=== PATIENT | female | born 1995 | race African-American/Black ===

== ENCOUNTER 2017-04-15 23:05 | Emergency (ER) | payer MEDICAID, SELFPAY ==
[2017-04-16] MEDS ORDERED: Dexamethasone 4 mg/ml Vial ONE (01:05)
== END 2017-04-16 01:31 | disposition home or self-care (01) ==
LOC: ERS 23:05
DX: B34.9 Viral infection, unspecified (principal); F41.9 Anxiety disorder, unspecified; F32.9 Major depressive disorder, single episode, unspecified
CPT/HCPCS: 87081; 87430; 99283; J1100

== ENCOUNTER 2017-06-13 21:46 | Emergency (ER) | payer MEDICAID, SELFPAY ==
[2017-06-13] MEDS ORDERED: Metoclopramide HCl 10 MG/2 ML VIAL ONE (22:32)
[2017-06-13] MEDS ORDERED: diphenhydrAMINE 50 MG/ML VIAL ONE (22:32)
[2017-06-13 23:08] LABS: Pregnancy Test - Urine (BHCG) Negative (Negative); Pregu Control Background? CLEAR/WHITE (CLR/WHITE); Pregu Control Bar Appear? YES (CONTROL BAR); Specific Gravity 1.016 (1.002-1.036)
[2017-06-13] MEDS ORDERED: Magnesium Sulfate 2 GM/100 ML BAG ONE (23:20)
[2017-06-13] MEDS ORDERED: Ketorolac Tromethamine 30 MG/ML VIAL ONE (23:20)
== END 2017-06-14 00:20 | disposition home or self-care (01) ==
LOC: ERS 21:46
DX: R51 Headache (principal); F41.9 Anxiety disorder, unspecified; F32.9 Major depressive disorder, single episode, unspecified; Z79.899 Other long term (current) drug therapy
CPT/HCPCS: 81025; 96365; 96367; 96375; J1200; J1885; J2765; J3475

== ENCOUNTER 2017-07-02 13:18 | Emergency (ER) | payer SELFPAY ==
[2017-07-02] MEDS ORDERED: Ketorolac Tromethamine 30 MG/ML VIAL ONE (13:31)
[2017-07-02] MEDS ORDERED: Ondansetron HCl/PF 4 MG/2 ML Vial ONE (13:32)
[2017-07-02 14:04] LABS: Bilirubin Negative (Negative); Blood, Urine Large (Negative); Clarity TURBID (Clear); Glucose, Urine (Dipstick) Negative (Negative); Specific Gravity, Urine 1.025 (1.002-1.036); pH, Urine 7.5 (5.0-9.0)
[2017-07-02 14:05] LABS: Pregnancy Test - Urine (BHCG) Negative (Negative); Pregu Control Background? CLEAR/WHITE (CLR/WHITE); Pregu Control Bar Appear? YES (CONTROL BAR); Specific Gravity 1.025 (1.002-1.036)
[2017-07-02 14:06] LABS: Bacteria/HPF None Seen HPF (None Seen); Hyaline Casts/LPF 4-6 HYALINE CAST LPF (0-3 Hyaline); Pathc Cast-AUWi Flag 2.08 (0-2.49); RBC/HPF GREATER THAN 50-TNTC HPF (0-3)
[2017-07-02 14:13] LABS: Nitrite Negative (Negative)
[2017-07-02 14:14] LABS: Protein, Urine (Dipstick) 30 mg/dL (Neg-Trace)
[2017-07-02 14:21] LABS: Leukocyte Trace (Negative)
== END 2017-07-02 14:40 | disposition home or self-care (01) ==
LOC: ERS 13:18
DX: N39.0 Urinary tract infection, site not specified (principal); F41.9 Anxiety disorder, unspecified; D64.9 Anemia, unspecified; F32.9 Major depressive disorder, single episode, unspecified
CPT/HCPCS: 81003; 81015; 81025; 96374; 96375; J1885; J2405

== ENCOUNTER 2017-07-06 20:33 | Emergency (ER) | payer SELFPAY ==
[2017-07-06] MEDS ORDERED: Ketorolac Tromethamine 30 MG/ML VIAL ONE (21:20)
[2017-07-06] MEDS ORDERED: Ondansetron PF 4 MG/2 ML Vial ONE (21:20)
[2017-07-06 21:26] LABS: #Basophils 0.1 thou/uL (0.0-0.2); #Eosinphils 0.1 thou/uL (0.0-0.7); #Lymphocytes 1.5 thou/uL (1.20-3.40); #Monocytes 0.4 thou/uL (0.11-0.59); #Neutrophils 4.3 thou/uL (1.40-6.50); %Basophils 0.9 % (0.0-1.0); %Eosinophils 2.2 % (0.0-10.0); %Lymphocytes 22.7 % (28.0-48.0); %Monocytes 6.7 % (0.0-4.0); %Neutrophils 67.5 % (31.0-61.0); Hemoglobin 10.7 g/dL (12.0-16.0); Mean Corpuscular HGB CONC 31.8 g/dL (32.0-36.0); Mean Corpuscular Hemoglobin 24.2 pg (25.0-35.0); Mean Corpuscular Volume 76.1 fl (77.0-87.0); Mean Platelet Volume 6.9 fL (7.4-10.4); Platelet Count 384 thou/uL (130-400); RBC Distribution Width 14.2 % (11.5-14.5); Red Blood Cell (RBC) Count 4.42 mill/uL (4.00-5.20); White Blood Cell (WBC) Count 6.4 thou/uL (4.8-10.8)
[2017-07-06 21:28] LABS: Bilirubin Negative (Negative); Blood, Urine Large (Negative); Clarity CLEAR (Clear); Glucose, Urine (Dipstick) Negative (Negative); Leukocyte Negative (Negative); Nitrite Negative (Negative); Protein, Urine (Dipstick) 30 mg/dL (Neg-Trace); Specific Gravity, Urine 1.036 (1.002-1.036); Urobilinogen 0.2 mg/dL (0.2-1.0)
[2017-07-06 21:30] LABS: Bacteria/HPF Rare-Few HPF (None Seen); Hyaline Casts/LPF 7-10 HYALINE CAST LPF (0-3 Hyaline); Pathc Cast-AUWi Flag 0.94 (0-2.49); RBC/HPF GREATER THAN 50-TNTC HPF (0-3)
[2017-07-06 21:36] LABS: BHCG - Serum Negative (NEGATIVE); Pregs Control Background? CLEAR/WHITE (CLR/WHITE); Pregs Control Bar Appear? YES (CONTROL BAR)
[2017-07-06 21:48] LABS: ALT (SGPT) 13 U/L (8-55); AST (SGOT) 16 U/L (5-34); Albumin 4.1 g/dL (3.5-5.0); Alkaline Phosphatase 54 U/L (40-150); Anion Gap 12 mmol/L (10-20); BUN (Urea Nitrogen) 15 mg/dL (7.0-18.7); Bilirubin, Total 0.6 mg/dL (0.2-1.2); Calc. Creatinine Clearance 0 mL/min (70-130); Calcium 9.3 mg/dL (7.8-10.44); Carbon Dioxide 24 mmol/L (22-29); Chloride 105 mmol/L (98-107); Estimated GFR-MDRD Greater than 90; Globulin 3.2 g/dL (2.4-3.5); Glucose 80 mg/dL (70-105); Potassium 3.3 mmol/L (3.5-5.1); Protein, Total 7.3 g/dL (6.0-8.3); Sodium 138 mmol/L (136-145)
== END 2017-07-06 23:20 | disposition home or self-care (01) ==
LOC: ERS 20:33
DX: N39.0 Urinary tract infection, site not specified (principal); N94.89 Other specified conditions associated with female genital organs and menstrual cycle; D64.9 Anemia, unspecified; F41.9 Anxiety disorder, unspecified; F32.9 Major depressive disorder, single episode, unspecified; G43.909 Migraine, unspecified, not intractable, without status migrainosus
CPT/HCPCS: 80053; 81003; 81015; 84703; 85025; 96361; 96374; 96375; J1885; J2405

== ENCOUNTER 2017-08-09 02:02 | Emergency (ER) | payer MEDICAID, SELFPAY ==
[2017-08-09] MEDS ORDERED: Ondansetron HCl/PF 4 MG/2 ML Vial ONE (02:08)
[2017-08-09] MEDS ORDERED: Acetaminophen 500 MG TAB ONE (02:31)
[2017-08-09 02:34] LABS: #Basophils 0.1 thou/uL (0.0-0.2); #Eosinphils 0.4 thou/uL (0.0-0.7); #Lymphocytes 2.1 thou/uL (1.20-3.40); #Monocytes 0.6 thou/uL (0.11-0.59); #Neutrophils 3.3 thou/uL (1.40-6.50); %Basophils 1.2 % (0.0-1.0); %Eosinophils 6.7 % (0.0-10.0); %Lymphocytes 31.6 % (28.0-48.0); %Monocytes 9.8 % (0.0-4.0); %Neutrophils 50.7 % (31.0-61.0); Hemoglobin 10.3 g/dL (12.0-16.0); Mean Corpuscular Volume 78.3 fl (77.0-87.0); Mean Platelet Volume 6.2 fL (7.4-10.4); Platelet Count 329 thou/uL (130-400); RBC Distribution Width 15.4 % (11.5-14.5); Red Blood Cell (RBC) Count 4.11 mill/uL (4.00-5.20); White Blood Cell (WBC) Count 6.5 thou/uL (4.8-10.8)
[2017-08-09 02:39] LABS: BHCG - Serum Negative (NEGATIVE); Pregs Control Background? CLEAR/WHITE (CLR/WHITE); Pregs Control Bar Appear? YES (CONTROL BAR)
[2017-08-09 02:48] LABS: ALT (SGPT) 7 U/L (8-55); AST (SGOT) 12 U/L (5-34); Albumin 3.7 g/dL (3.5-5.0); Alkaline Phosphatase 41 U/L (40-150); Anion Gap 8 mmol/L (10-20); BUN (Urea Nitrogen) 10 mg/dL (7.0-18.7); Bilirubin, Total 0.3 mg/dL (0.2-1.2); Calc. Creatinine Clearance 0 mL/min (70-130); Calcium 8.8 mg/dL (7.8-10.44); Carbon Dioxide 26 mmol/L (22-29); Chloride 108 mmol/L (98-107); Estimated GFR-MDRD Greater than 90; Globulin 2.6 g/dL (2.4-3.5); Glucose 99 mg/dL (70-105); Potassium 3.2 mmol/L (3.5-5.1); Protein, Total 6.3 g/dL (6.0-8.3); Sodium 139 mmol/L (136-145)
[2017-08-09] MEDS ORDERED: Ketorolac Tromethamine 30 MG/ML VIAL ONE (03:44)
--- NOTE | 2017-08-09 08:32 | ULT ---
PRELIMINARY REPORT/[facility]/EMERGENCY AFTER HOURS PROCEDURE: EXAM: US Pelvis Complete, Transabdominal CLINICAL HISTORY: 21 years old, female; Pain and signs and symptoms; Menstruation abnormalities; Excessive menstruation ; With irregular cycle; Pelvic pain; Patient HX: Pelvic pain with vaginal bleeding x 1 month, dyspare unia; Additional info: Patient start control pill 07/19/17. TECHNIQUE: Real-time transabdominal pelvic ultrasound (complete) with image documentation. COMPARISON: No relevant prior studies available. FINDINGS: Uterus/cervix: Unremarkable. Thickened, heterogeneous endometrial stripe measuring up to 1.9 cm with internal Doppler color flow. Right ovary: Unremarkable. Doppler flow demonstrated. Left ovary: Unremarkable. Doppler flow demonstrated. Free fluid: Small amount of free fluid in the cul-de-sac. IMPRESSION: Thickened endometrial stripe, could be related to hyperplasia or polyps. Thank you for allowing us to participate in the care of your patient. Dictated and Authenticated by: Paddy Estes MD 08/09/2017 3:58 AM Central Time ([place] & [place]) FINAL REPORT PELVIC ULTRASOND: Date: 08/09/17 HISTORY: Pelvic pain. Vaginal bleeding. Negative test. FINDINGS: Real-time images of the pelvis were obtained transabdominally, as well as with an endovaginal probe. The uterus measures 5.1 x 5.7 x 8.7 cm. The endometrium is thickened and heterogeneous. It measures 1 .9 cm. Right and left adnexa are normal in size and appearance. DOPPLER EVALUATION WITH SPECTRAL ANALYSIS: Normal flow shown to the adnexa. Trace free fluid is noted. IMPRESSION: Thickened, heterogeneous endometrium, more heterogeneous in appearance than would be typically seen r elated to menstrual cycle. It could represent blood products. POS: [facility]
[2017-08-10 21:57] LABS: Chlamydia by PCR Not Detected (NotDetected); GC by PCR Not Detected (NotDetected)
== END 2017-08-09 04:24 | disposition home or self-care (01) ==
LOC: ERS 02:02
DX: N94.6 Dysmenorrhea, unspecified (principal); D64.9 Anemia, unspecified; G43.909 Migraine, unspecified, not intractable, without status migrainosus; F41.9 Anxiety disorder, unspecified; F32.9 Major depressive disorder, single episode, unspecified
CPT/HCPCS: 36415; 76856; 80053; 84702; 84703; 85025; 87480; 87491; 87510; 87591; 87660; 96361; 96374; 96375; J1885; J2405

== ENCOUNTER 2017-11-02 20:54 | Emergency (ER) | payer SELFPAY ==
[2017-11-02 21:23] LABS: #Eosinphils 0.3 thou/uL (0.0-0.7); #Lymphocytes 2.2 thou/uL (1.20-3.40); #Monocytes 0.5 thou/uL (0.11-0.59); #Neutrophils 2.5 thou/uL (1.40-6.50); %Basophils 0.9 % (0.0-1.0); %Eosinophils 5.7 % (0.0-10.0); %Lymphocytes 39.2 % (21.0-51.0); %Monocytes 9.5 % (0.0-10.0); %Neutrophils 44.7 % (42.0-75.0); Hemoglobin 9.3 g/dL (12.0-16.0); Mean Corpuscular HGB CONC 32.1 g/dL (32.0-36.0); Mean Corpuscular Hemoglobin 23.6 pg (27.0-31.0); Mean Corpuscular Volume 73.5 fl (81.0-99.0); Mean Platelet Volume 6.8 fL (7.4-10.4); Platelet Count 334 thou/uL (130-400); RBC Distribution Width 14.1 % (11.5-14.5); Red Blood Cell (RBC) Count 3.93 mill/uL (4.20-5.40); White Blood Cell (WBC) Count 5.6 thou/uL (4.8-10.8)
[2017-11-02 21:41] LABS: Hypochromia SLIGHT = 6-15 cells (100X) (0-5/hpf); MDiff Complete? YES; Microcytosis SLIGHT = 6-15 cells (100X) (0-5/hpf); Ovalocytes SLIGHT = 2-5 cells (100X) (0-1/hpf); PLT Morphology Comment Appears Adequate; Polychromasia SLIGHT = 2-3 cells (100X) (0-2/hpf)
[2017-11-02 21:41] LABS: Bilirubin Negative (Negative); Blood, Urine Negative (Negative); Clarity CLEAR (Clear); Glucose, Urine (Dipstick) Negative (Negative); Leukocyte Negative (Negative); Nitrite Negative (Negative); Protein, Urine (Dipstick) Negative (Neg-Trace); pH, Urine 6.5 (5.0-9.0)
[2017-11-02 21:42] LABS: Pregnancy Test - Urine (BHCG) Negative (Negative); Pregu Control Background? CLEAR/WHITE (CLR/WHITE); Pregu Control Bar Appear? YES (CONTROL BAR)
[2017-11-02 21:42] LABS: Anion Gap 10 mmol/L (10-20); BUN (Urea Nitrogen) 9 mg/dL (7.0-18.7); Calc. Creatinine Clearance 0 mL/min (70-130); Calcium 9.3 mg/dL (7.8-10.44); Carbon Dioxide 26 mmol/L (22-29); Chloride 104 mmol/L (98-107); Estimated GFR-MDRD Greater than 90; Glucose 100 mg/dL (70-105); Potassium 3.3 mmol/L (3.5-5.1); Sodium 137 mmol/L (136-145)
== END 2017-11-02 22:12 | disposition home or self-care (01) ==
LOC: ERS 20:54
DX: M79.1 Myalgia (principal); F41.9 Anxiety disorder, unspecified; F32.9 Major depressive disorder, single episode, unspecified; G43.909 Migraine, unspecified, not intractable, without status migrainosus; D64.9 Anemia, unspecified; Z79.899 Other long term (current) drug therapy
CPT/HCPCS: 36415; 80048; 81003; 81025; 85025; 99283

== ENCOUNTER 2017-11-21 22:08 | Emergency (ER) | payer SELFPAY ==
[2017-11-21 22:31] LABS: Bilirubin Small (Negative); Blood, Urine Large (Negative); Clarity TURBID (Clear); Glucose, Urine (Dipstick) Negative (Negative); Leukocyte Moderate (Negative); Nitrite Positive (Negative); Pregnancy Test - Urine (BHCG) Negative (Negative); Protein, Urine (Dipstick) 300 mg/dL (Neg-Trace); Specific Gravity, Urine 1.035 (1.002-1.036); pH, Urine 6.5 (5.0-9.0)
[2017-11-21 22:32] LABS: Bacteria/HPF None Seen HPF (None Seen); Pregu Control Background? CLEAR/WHITE (CLR/WHITE); Pregu Control Bar Appear? YES (CONTROL BAR); RBC/HPF GREATER THAN 50-TNTC HPF (0-3); Specific Gravity 1.034 (1.002-1.036)
[2017-11-21 22:33] LABS: Pathc Cast-AUWi Flag 6.68 (0-2.49)
[2017-11-21 22:38] LABS: Hyaline Casts/LPF 0-3 HYALINE CAST LPF (0-3 Hyaline)
== END 2017-11-21 23:07 | disposition home or self-care (01) ==
LOC: ERS 22:08
DX: N30.00 Acute cystitis without hematuria (principal); D64.9 Anemia, unspecified; G43.909 Migraine, unspecified, not intractable, without status migrainosus; F41.9 Anxiety disorder, unspecified; F32.9 Major depressive disorder, single episode, unspecified; Z79.899 Other long term (current) drug therapy
CPT/HCPCS: 81003; 81015; 81025; 87086; 99283

== ENCOUNTER 2018-03-14 10:38 | Outpatient (CLI) | payer OTHER ==
[2018-03-14 12:40] LABS: Hemoglobin 10.1 g/dL (12.0-16.0); Mean Corpuscular Hemoglobin 21.8 pg (27.0-31.0); Mean Corpuscular Volume 72.6 fL (78.0-98.0); Mean Platelet Volume 8.2 fL (7.4-10.4); Platelet Count 465 thou/uL (130-400); RBC Distribution Width 15.7 % (11.5-14.5); Red Blood Cell (RBC) Count 4.62 mill/uL (4.20-5.40); White Blood Cell (WBC) Count 6.2 thou/uL (4.8-10.8)
[2018-03-14 12:46] LABS: BHCG - Serum Negative (NEGATIVE); Pregs Control Background? CLEAR/WHITE (CLR/WHITE); Pregs Control Bar Appear? YES (CONTROL BAR)
== END 2018-03-14 10:39 | disposition home or self-care (01) ==
LOC: LABBT 10:38
PROVIDERS: ATTEND Obstetrics & Gynecology
DX: Z01.812 Encounter for preprocedural laboratory examination (principal); R10.2 Pelvic and perineal pain; N84.0 Polyp of corpus uteri
CPT/HCPCS: 84703; 85027; 86850; 86900; 86901

== ENCOUNTER 2018-03-19 07:55 | Day surgery (SDC) | payer OTHER ==
[2018-03-14 11:07] VITALS: BMI 28.3
--- NOTE | 2018-03-18 21:13 | HP ---
DATE OF ADMISSION: 03/19/2018 REASON FOR ADMISSION: Dysfunctional uterine bleeding with thickened endometrium consistent with endo metrial polyp. SCHEDULED PROCEDURE: Hysteroscopy, D&C endocavitary polyp resection. HISTORY OF PRESENT ILLNESS: Ms. Hidalgo is a 22-year-old with a long history of dysfunctional uterine bleeding. Ultrasound has revealed a very thickened endometrium and is very suggestive of an endocavitary polyp. Biopsy has been scant tissue with no evidence of malignancy. Polyp appears quit e vascular on Doppler ultrasound. The patient has a history of chronic pelvic pain somewhat suggesti ve of endometriosis on a cyclic basis. 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 Denies STD history. Pregnancies: 1, AB: 1. Deliveries: None. PAST MEDICAL HISTORY: None. PAST SURGICAL HISTORY: None. ALLERGIES: Denies. MEDICATIONS: Provera, . SOCIAL HISTORY: Denies tobacco, alcohol, or drug use. FAMILY HISTORY: Noncontributory. REVIEW OF SYSTEMS: Noncontributory. PHYSICAL EXAMINATION: GENERAL: White female in no acute distress. HEENT: Within normal limits. LUNGS: Clear to auscultation bilaterally. HEART: Regular rhythm. BREASTS: No masses bilaterally. ABDOMEN: Soft, nontender, no rebound or guarding. PELVIC: Vulva without lesions. Vagina without discharge. Cervix nulliparous. Uterus anteverted, 8 week size. Adnexa no masses bilaterally. EXTREMITIES: Without clubbing, cyanosis or edema. IMAGING: Abnormal ultrasound at the office is noted. IMPRESSION: Persistent dysfunctional uterine bleeding with vascular appearing mass in the uterine ca vity consistent with polyp. PLAN: Hysteroscopy, D&C and polyp resection with Truclear. The patient understands risks and benef its of the procedure including bleeding, perforation, inability to complete procedure. We will admin ister appropriate antibiotic and DVT prophylaxis. We will proceed with hysteroscopy, D&C, endometria l resection with Truclear and diagnostic laparoscopy.
[2018-03-19] MEDS ORDERED: CeleCOXIB 100 MG CAP ONE ×2 (08:26→08:27)
[2018-03-19] MEDS ORDERED: Famotidine/PF 20 mg/2ml Vial ONE ×2 (08:27)
[2018-03-19] MEDS ORDERED: Clindamycin/D5W 900 mg/50 ml Premix Bag ONE (10:01)
[2018-03-19] MEDS ORDERED: Fentanyl 250 MCG/5 ML VIAL ONE (10:29)
[2018-03-19] MEDS ORDERED: Bupivacaine HCl 0.5%/Epinephrine 1:200,000/PF 30 ml Vial ONE (10:34)
[2018-03-19] MEDS ORDERED: Lidocaine 1% w/Epinephrine 1:100K 30 ML VIAL ONE (11:19)
[2018-03-19] MEDS ORDERED: diphenhydrAMINE 50 MG/ML VIAL ONE (13:50)
[2018-03-19] MEDS ORDERED: Lidocaine 1% PF 5 ML VIAL ONE (17:52)
[2018-03-19] MEDS ORDERED: Ondansetron PF 4 MG/2 ML Vial ONE (17:52)
[2018-03-19] MEDS ORDERED: PROPOFOL 200 MG/20 ML VIAL ONE (17:52)
[2018-03-19] MEDS ORDERED: Dexamethasone 20 MG/5 ML VIAL ONE (17:52)
--- NOTE | 2018-03-20 00:43 | OP ---
DATE OF PROCEDURE: 03/19/2018 PREOPERATIVE DIAGNOSES: Chronic pelvic pain with dysfunctional uterine bleeding, ultrasound its appe arance consistent with endocavitary polyps. POSTOPERATIVE DIAGNOSES: Small amount of uterosacral ligament endometriosis with 1-2 cm endometrioti c nodule involving the rectum and right uterosacral and multiple endocavitary polyps with benign appe arance. PROCEDURE: Diagnostic laparoscopy with hysteroscopic resection of endocavitary polyps. SURGEON: Cesario Renee M.D. ANESTHESIA: General endotracheal. Beny Frausto M.D. MEDICATIONS: Clindamycin 900 preoperatively. DRAINS: Singh to gravity, clear urine. COMPLICATIONS: None. OPERATIVE FINDINGS: 1. Fluid use for approximately 750 mL intraoperatively with polyp resection with fluid deficit of 13 0 mL at the end of the procedure with no evidence of perforation. 2. Uterine cavity with multiple uterine polyps resected. 3. Small powder burn areas of endometriosis noted on right and left uterosacral ligament, none in th e ovarian fossa, none in the anterior cul-de-sac. 4. Approximately 1 to 1.5 cm endometriotic nodule with significant scarring involving the right uter osacral ligament, rectovaginal space, and anterior rectum. DISPOSITION: To the recovery room in good condition. DESCRIPTION OF OPERATIVE PROCEDURE: After obtaining proper consent, the patient was taken to the ope rating where general endotracheal anesthesia without difficulty. The patient was prepped and draped in dorsal lithotomy position in John stirrups. Bladder was drained with a Singh catheter and a Hulk a manipulator placed inside the cervix. Quality Improvement Consultant changed his gloves and turned his attention to the abdominal portion of procedure. A 5 mL of Marcaine injected at the base of umbilicus and an 8 mm tro car introduced after insufflating the abdomen with a Veress needle to a max pressure of 15. The nehemiah ent was placed in steep Trendelenburg position and a 5 mm trocar placed left lateral, lateral to the epigastric vessels under direct visualization. Pelvic organs were mobilized and findings as noted in the operative findings were noted. In general, the ileocecal valve area appeared normal with no inf lammation of the appendix that was noted to be somewhat retrocecal, liver edge, gallbladder appeared normal, and the uterus and adnexa appeared normal. Upon inspection of the posterior cul-de-sac, find ings as noted in the operative findings were noted. Dr. Chito Goodman was consulted intraoperatively . He agreed that attempts at excising the nodule involving the rectum, rectovaginal septum, and righ t uterosacral would likely result in injury to the bowel at that level. The decision was made becbethany e of this not to proceed with excision of that or other endometriosis in the area, which was of a jaclyn y minimal size and distribution beyond this nodule. Instead, I anticipate seeing the patient back fo r followup and proceeding with either GnRH agonist or other appropriate treatment for endometriosis m edically with consideration for possible staged procedure with bowel prep with Dr. Goodman at a futur e date. Since we were going to excise this mass, decision was made to go ahead and proceed with the therapeutic hysteroscopy at this time. The abdomen was desufflated with carbon dioxide. Trocars wer e removed x2. Skin was closed with 4-0 Monocryl and Dermabond. returned to the vaginal approa . The legs were rotated up and the Hulka manipulator removed. A side-hand speculum placed in vagi na and cervix identified. Uterus sounded to 8 cm. It was serially dilated up to appropriate level f or the TruClear hysteroscope. TruClear hysteroscopy was carried out using normal saline as at max pressure of 80 mL. TruClear was introduced into the uterus and the fundus. Identification of th e uterine cavity was carried out with identification of the tubal ostia bilaterally and no evidence o f perforation. Multiple polyps were noted. Using the TruClear incision device, the polyps were rese cted in a stepwise manner maintaining clear visualization of the resection device throughout avoid ri sk of uterine perforation. Polyps were resected down to the level of flush with the uterine wall, bu t no deeper in order to avoid risk of Asherman syndrome due to over resection of endometrium. Once t his was carried out, fluid deficit was noted to be 130 mL. No evidence of perforation was noted. Th e hysteroscope was removed. Prior to hysteroscopy, a paracervical block of 20 mL of 1% lidocaine wit h epinephrine was injected to decrease uterine blood flow, therefore decreasing the bleeding with ashley yp resection as well as absorption of distention media. After the hysteroscope was removed, the nathan culum was removed. No bleeding was noted from the anterior lip of the cervix. Side-hand speculum re moved. Singh removed. The patient awakened, extubated and taken to recovery room in good condition. She will be [facility] at [facility] in 4-6 weeks for postoperative followup.
== END 2018-03-19 16:15 | disposition home or self-care (01) ==
LOC: SDC 07:55
PROVIDERS: ATTEND Obstetrics & Gynecology
PROC: 0WJJ4ZZ Inspection of Pelvic Cavity, Percutaneous Endoscopic Approach (ICD-10-PCS; principal; 2018-03-19)
PROC: 0UB98ZX Excision of Uterus, Via Natural or Artificial Opening Endoscopic, Diagnostic (ICD-10-PCS; principal; 2018-03-19)
DX: N84.0 Polyp of corpus uteri (principal); N80.8 Other endometriosis; Z79.899 Other long term (current) drug therapy; Z88.0 Allergy status to penicillin
CPT/HCPCS: 88305; J0670; J1100; J1200; J2001; J2405; J2704; J3010; J3490; S0028

== ENCOUNTER 2018-03-27 13:17 | Emergency (ER) | payer SELFPAY ==
[2018-03-27 13:52] LABS: #Basophils 0.1 thou/uL (0.0-0.2); #Eosinphils 0.4 thou/uL (0.0-0.7); #Monocytes 0.4 thou/uL (0.11-0.59); #Neutrophils 3.4 thou/uL (1.40-6.50); %Basophils 1.7 % (0.0-1.0); %Eosinophils 6.5 % (0.0-10.0); %Lymphocytes 31.7 % (21.0-51.0); %Monocytes 6.9 % (0.0-10.0); %Neutrophils 53.2 % (42.0-75.0); Hemoglobin 9.3 g/dL (12.0-16.0); Mean Corpuscular HGB CONC 31.1 g/dL (32.0-36.0); Mean Corpuscular Hemoglobin 22.3 pg (27.0-31.0); Mean Corpuscular Volume 71.9 fL (78.0-98.0); Mean Platelet Volume 7.9 fL (7.4-10.4); Platelet Count 326 thou/uL (130-400); RBC Distribution Width 15.2 % (11.5-14.5); Red Blood Cell (RBC) Count 4.15 mill/uL (4.20-5.40); White Blood Cell (WBC) Count 6.4 thou/uL (4.8-10.8)
[2018-03-27 14:05] LABS: BHCG - Serum Negative (NEGATIVE); Pregs Control Background? CLEAR/WHITE (CLR/WHITE); Pregs Control Bar Appear? YES (CONTROL BAR)
[2018-03-27 14:15] LABS: ALT (SGPT) 12 U/L (8-55); AST (SGOT) 16 U/L (5-34); Albumin 3.8 g/dL (3.5-5.0); Alkaline Phosphatase 49 U/L (40-150); Anion Gap 10 mmol/L (10-20); BUN (Urea Nitrogen) 9 mg/dL (7.0-18.7); Bilirubin, Total 0.3 mg/dL (0.2-1.2); Calc. Creatinine Clearance 0 mL/min (70-130); Calcium 8.9 mg/dL (7.8-10.44); Carbon Dioxide 25 mmol/L (22-29); Chloride 106 mmol/L (98-107); Estimated GFR-MDRD Greater than 90; Globulin 2.8 g/dL (2.4-3.5); Glucose 107 mg/dL (70-105); Potassium 3.5 mmol/L (3.5-5.1); Protein, Total 6.6 g/dL (6.0-8.3); Sodium 137 mmol/L (136-145)
--- NOTE | 2018-03-27 14:53 | CT ---
CT PULMONARY ANGIOGRAM WITH IV CONTRAST AND 3D POSTPROCESSING: Date: 03/27/18 HISTORY: 22-year-old female with dyspnea, elevated D-Dimer, syncope. FINDINGS: There is good opacification of the pulmonary arterial vasculature without filling defects to suggest pulmonary embolism. The thoracic aorta is well opacified without aneurysm or dissection. No pleural or pericardial effusions are seen. No pneumothoraces, focal areas of consolidation, pulmon ishaan nodules, or lung masses are seen. No acute osseous abnormalities are seen. IMPRESSION: No CT evidence of pulmonary embolism. POS: [facility]
[2018-03-27] MEDS ORDERED: Metoclopramide HCl 10 MG TAB PO SCH (15:45)
[2018-03-27] MEDS ORDERED: diphenhydrAMINE 25 MG CAP ONE (16:23)
[2018-03-27] MEDS ORDERED: Iopamidol 370 76% 100 ML VIAL ONE (16:30)
== END 2018-03-27 16:40 | disposition home or self-care (01) ==
LOC: ERS 13:17
DX: R55 Syncope and collapse (principal); F41.9 Anxiety disorder, unspecified; F32.9 Major depressive disorder, single episode, unspecified; D64.9 Anemia, unspecified; G43.909 Migraine, unspecified, not intractable, without status migrainosus; Z79.899 Other long term (current) drug therapy
CPT/HCPCS: 36415; 71275; 80053; 84703; 85025; 85379; 93005; 96360

== ENCOUNTER 2018-10-06 12:52 | Emergency (ER) | payer SELFPAY ==
[2018-10-06] MEDS ORDERED: Ondansetron PF 4 MG/2 ML Vial ONE (13:18)
[2018-10-06 13:19] LABS: #Basophils 0.1 thou/uL (0.0-0.2); #Eosinphils 0.2 thou/uL (0.0-0.7); #Monocytes 0.4 thou/uL (0.11-0.59); #Neutrophils 2.2 thou/uL (1.40-6.50); %Basophils 1.5 % (0.0-1.0); %Eosinophils 4.2 % (0.0-10.0); %Lymphocytes 40.4 % (21.0-51.0); %Monocytes 8.5 % (0.0-10.0); %Neutrophils 45.4 % (42.0-75.0); Hemoglobin 11.4 g/dL (12.0-16.0); Mean Corpuscular HGB CONC 32.4 g/dL (32.0-36.0); Mean Corpuscular Hemoglobin 26.1 pg (27.0-31.0); Mean Corpuscular Volume 80.6 fL (78.0-98.0); Mean Platelet Volume 6.7 fL (7.4-10.4); Platelet Count 383 thou/uL (130-400); RBC Distribution Width 15.4 % (11.5-14.5); Red Blood Cell (RBC) Count 4.37 mill/uL (4.20-5.40); White Blood Cell (WBC) Count 4.9 thou/uL (4.8-10.8)
[2018-10-06 13:25] LABS: BHCG - Serum Negative (NEGATIVE); Pregs Control Background? CLEAR/WHITE (CLR/WHITE); Pregs Control Bar Appear? YES (CONTROL BAR)
[2018-10-06 13:41] LABS: ALT (SGPT) 10 U/L (8-55); AST (SGOT) 14 U/L (5-34); Albumin 4.1 g/dL (3.5-5.0); Alkaline Phosphatase 52 U/L (40-150); Anion Gap 12 mmol/L (10-20); BUN (Urea Nitrogen) 8 mg/dL (7.0-18.7); Bilirubin, Total 0.6 mg/dL (0.2-1.2); Calc. Creatinine Clearance 0 mL/min (70-130); Calcium 9.4 mg/dL (7.8-10.44); Carbon Dioxide 25 mmol/L (22-29); Chloride 106 mmol/L (98-107); Estimated GFR-MDRD Greater than 90; Globulin 2.8 g/dL (2.4-3.5); Glucose 92 mg/dL (70-105); Lipase 12 U/L (8-78); Potassium 3.2 mmol/L (3.5-5.1); Protein, Total 6.9 g/dL (6.0-8.3); Sodium 140 mmol/L (136-145)
--- NOTE | 2018-10-06 14:15 | ULT ---
Gallbladder ultrasound: Multiple grayscale images of right upper quadrant obtained according to protocol. INDICATIONS: Right upper quadrant pain. FINDINGS: Gallbladder has a normal sonographic appearance. No evidence of gallstones. Common bile duct is normal caliber. Liver is unremarkable. Pancreas is mostly obscured but appears unremarkable as visualized. Right kidney is imaged and appears unremarkable. IMPRESSION: Unremarkable gallbladder ultrasound.
== END 2018-10-06 14:11 | disposition home or self-care (01) ==
LOC: ERS 12:52
DX: R10.11 Right upper quadrant pain (principal); G89.29 Other chronic pain; F32.9 Major depressive disorder, single episode, unspecified; G43.909 Migraine, unspecified, not intractable, without status migrainosus; D64.9 Anemia, unspecified; Z79.899 Other long term (current) drug therapy
CPT/HCPCS: 76705; 80053; 83690; 84703; 85025; 96361; 96374; J2405

== ENCOUNTER 2018-12-04 10:30 | Inpatient (IN) | payer OTHER ==
[2018-12-04 11:14] VITALS: BMI 27.8
[2018-12-04 12:22] LABS: BHCG - Serum Negative (NEGATIVE); Pregs Control Background? CLEAR/WHITE (CLR/WHITE); Pregs Control Bar Appear? YES (CONTROL BAR)
[2018-12-05] MEDS ORDERED: Fentanyl 100 MCG/2 ML VIAL ONE ×3 (06:23→11:54)
[2018-12-05] MEDS ORDERED: Midazolam HCl 2 mg/2 ml Vial ONE (06:23)
[2018-12-05] MEDS ORDERED: cefOXitin 2 GM VIAL ONE (06:37)
[2018-12-05] MEDS ORDERED: Sodium Chloride 0.9% 100 ML ONE (06:37)
[2018-12-05] MEDS ORDERED: Bupivacaine/Epinephrine 0.25% 30 ML VIAL ONE (07:00)
[2018-12-05] MEDS ORDERED: HYDROmorphone 2 MG/ML VIAL SLOW IVP PRN (11:17)
[2018-12-05] MEDS ORDERED: Morphine Sulfate 2 MG/ML SYRINGE SLOW IVP PRN (11:17)
[2018-12-05] MEDS ORDERED: PACU-Morphine 4MG/ML VIAL SLOW IVP PRN (11:17)
[2018-12-05] MEDS ORDERED: Meperidine HCl/PF 25 MG/ML VIAL SLOW IVP PRN (11:17)
[2018-12-05] MEDS ORDERED: Promethazine HCl 25 MG/ML VIAL IM PRN ×2 (11:17→14:30)
[2018-12-05] MEDS ORDERED: Promethazine HCl 25 MG/ML VIAL SLOW IVP PRN (11:17)
[2018-12-05] MEDS ORDERED: Ondansetron HCl/PF 4 MG/2 ML Vial IVP PRN (11:17)
[2018-12-05] MEDS ORDERED: Ketorolac Tromethamine 30 MG/ML VIAL IVP PRN (11:17)
[2018-12-05] MEDS ORDERED: Bupivacaine HCl 0.5%/Epinephrine 1:200,000/PF 30 ml Vial ONE (13:49)
[2018-12-05] MEDS ORDERED: Fentanyl 100 MCG/2 ML VIAL SLOW IVP PRN ×2 (14:30)
[2018-12-05] MEDS ORDERED: Ondansetron PF 4 MG/2 ML Vial IVP PRN (14:30)
[2018-12-05] MEDS ORDERED: hydrALAZINE 20 MG/ML VIAL SLOW IVP PRN (14:30)
[2018-12-05] MEDS ORDERED: PHENYLEPHRINE-NS 100 MCG/ML 10 ML SYRINGE ONE (14:41)
[2018-12-05] MEDS ORDERED: Lidocaine 1% PF 5 ML VIAL ONE (14:41)
[2018-12-05] MEDS ORDERED: Dexamethasone 20 MG/5 ML VIAL ONE (14:41)
[2018-12-05] MEDS ORDERED: Rocuronium Bromide 10 MG/ML (10ML VIAL) ONE (14:41)
[2018-12-05] MEDS ORDERED: PROPOFOL 200 MG/20 ML VIAL ONE (14:41)
[2018-12-05] MEDS ORDERED: Glycopyrrolate 0.2 MG/ML 5 ML SYRINGE ONE (14:41)
[2018-12-05] MEDS ORDERED: ePHEDrine 50 MG/ML VIAL ONE (14:41)
[2018-12-05] MEDS: D5 1/2 NS w/20 mEq KCL 1,000 ML IV SCH (15:09)
[2018-12-05] MEDS: Acetaminophen 1,000 MG in Premix Bag 1 BAG IVPB SCH ×2 (15:09→21:24)
[2018-12-05] MEDS: Famotidine 20 MG TAB PO SCH (20:21)
[2018-12-05] MEDS: Enoxaparin Sodium 40 MG/0.4 ML SYRINGE SC SCH (21:24)
[2018-12-05] MEDS: Famotidine/PF 20 mg/2ml Vial SLOW IVP SCH (21:25)
--- NOTE | 2018-12-05 21:53 | OP ---
DATE OF PROCEDURE: 12/05/2018 PREOPERATIVE DIAGNOSIS: Rectal mass (rectal wall endometrioma) with history of chronic pelvic pain. POSTOPERATIVE DIAGNOSIS: Rectal mass (rectal wall endometrioma) with history of chronic pelvic pain. PROCEDURE PERFORMED: Laparoscopic low anterior resection of rectosigmoid junction with primary anastomosis, 31 EEA. ANESTHESIA: General. WARP SCOURING VAT TENDER: Víctor. ESTIMATED BLOOD LOSS: 50 mL. COMPLICATIONS: None. FINDINGS: In the area of previous large endometrioma in the right rectosigmoid junction region, there is significant persistent inflammatory change and this does involve the wall of the colon. Due to the chronic nature of the scarring, this could not be dissected free. Decision was made for resection. DESCRIPTION OF PROCEDURE: The patient had undergone mechanical and antibiotic bowel prep. She had preop tap blocks, taken to the operating room and laid supine on the operating room table. After general anesthetic was obtained, a Singh was placed. She was placed in lithotomy position. Her abdomen and perineum were all prepped and draped in a sterile fashion. Left subcostal 5 mm Optiview trocar was placed in usual fashion without injury and high-flow pneumoperitoneum was obtained. An 11-mm balloon trocar was placed at the umbilicus. Balloon inflated and withdrawn. This will be the camera port. Left and right lower abdominal 8 mm robot trocars were placed under direct visualization. An assist 10/11 port was placed in the right upper quadrant. All ports were docked to the robot. Surgeon goes to the console. The peritoneum along the medial aspect of the rectosigmoid junction was incised and a medial to lateral rotation was performed. The left ureter was found excluded from the dissection. Dissection was performed down into the medial aspect of the rectosigmoid junction where this large nodule was. The nodule was dissected free from the pelvic sidewall. It was intimately associated with the rectosigmoid junction colon. A circumferential dissection of the upper rectum was performed in this area. The inferior mesenteric artery was not taken, it was saved. The left and right ureters were found and excluded from the dissection. Decision was made for resection. Laparoscopic 60 stapler was used to fire across the just distal to here on the colon, it took 2 fires to completely traverse the rectum. The proximal to the staple line was able to be brought up then and an incision was made in the left lower quadrant in area of the port and a muscle-splitting incision was made. The Ronald wound retractor was placed. The proximal colon was able to brought up through this hole. Location was found just above this endometrioma for anastomosis. At this location, a colotomy was made and the 31 EEA anvil was passed proximally with sharp end brought on the antimesenteric surface of the colon. A reload on the stapler was fired just distal to the anvil. The specimen was sent to [facility] for final diagnosis. The anvil in proximal colon was dropped back into the abdomen. The Ronald and held with a Yulia clamp. Laparoscopy was reestablished. The base of the EEA was brought up through the anus and sharp end brought on the antimesenteric surface of the rectum below. This was connected to the anvil from above and the stapler was fired down into the green zone and fired. Two good rings of tissue were obtained. There was no evidence of tension on the staple line. The anastomosis was insufflated with air and tested under water without leakage. There was no bleeding in the abdomen. The right lower quadrant incision and umbilical incision, fascial defects were closed using GraNee needle and 0 Vicryl tie. Pneumoperitoneum was let down. The muscle-splitting incision in the left lower quadrant was closed anterior-posterior fascia using PDS suture. The wounds were all irrigated copiously including the left lower quadrant incision and closed using 3-0 Vicryl, 4-0 Monocryl, and Dermabond. The patient was sent to Recovery in stable condition. All instrument counts, needle counts, and lap counts were correct. Job ID: [id number]
[2018-12-06] MEDS: D5 1/2 NS w/20 mEq KCL 1,000 ML IV SCH ×2 (03:20→13:54)
[2018-12-06] MEDS: Acetaminophen 1,000 MG in Premix Bag 1 BAG IVPB SCH ×2 (03:20→08:41)
[2018-12-06 04:28] LABS: #Lymphocytes 1.8 thou/uL (1.20-3.40); #Monocytes 1.3 thou/uL (0.11-0.59); #Neutrophils 9.7 thou/uL (1.40-6.50); %Basophils 0.1 % (0.0-1.0); %Lymphocytes 14.2 % (21.0-51.0); %Monocytes 10.2 % (0.0-10.0); %Neutrophils 75.5 % (42.0-75.0); Hemoglobin 9.9 g/dL (12.0-16.0); Mean Corpuscular HGB CONC 31.8 g/dL (32.0-36.0); Mean Corpuscular Hemoglobin 25.6 pg (27.0-31.0); Mean Corpuscular Volume 80.7 fL (78.0-98.0); Mean Platelet Volume 6.5 fL (7.4-10.4); Platelet Count 327 thou/uL (130-400); RBC Distribution Width 13.5 % (11.5-14.5); Red Blood Cell (RBC) Count 3.86 mill/uL (4.20-5.40); White Blood Cell (WBC) Count 12.9 thou/uL (4.8-10.8)
[2018-12-06 05:16] LABS: Anion Gap 11 mmol/L (10-20); BUN (Urea Nitrogen) 5 mg/dL (7.0-18.7); Calc. Creatinine Clearance 116 mL/min (70-130); Calcium 8.5 mg/dL (7.8-10.44); Carbon Dioxide 22 mmol/L (22-29); Chloride 107 mmol/L (98-107); Estimated GFR-MDRD Greater than 90; Glucose 107 mg/dL (70-105); Potassium 3.6 mmol/L (3.5-5.1); Sodium 136 mmol/L (136-145)
--- NOTE | 2018-12-06 06:56 | PDOC.GSPN ---
Surgery Progress Note: Subj - Subjective Patient reports: no new complaints, feels better, tolerating liquids well, no bowel movement, no flatus Narrative: Ms. Hidalgo is a 23 year old female who underwent bowel resection of a small nodule at the rectosigmoid junction yesterday morning. Patient is recovering very well and her nurse also informed me that she had no events overnight. She did have questions about vaginal/rectal bleeding as she was informed in recovery that she had some post surgery. Ms. Hidalgo reports having nausea last night, however she is not nauseous this morning. She has some stomach pain and is appropriately tender post-surgery, with which she rates 6-7/10. She has not had a bowel movement or has she passed flatus. However, she reports feeling like she has to pass flatus and mentions burping intermittently. Singh is still in place and planned to be removed this morning. She is ambulating well, easily changing positions in bed and reports walking 2 laps in the hallway yesterday without issues. The patient utilized spirometry several times yesterday. She mentions spitting up one of the liquids due to its acidity. However, she has been tolerating all other clear liquids well. Patient denies chest pain, dyspnea, vomiting, diarrhea, or headaches. Surgery Progress Note: Obj - Vital signs Vital signs: Vital Signs - Most Recent Temp Pulse Resp BP Pulse Ox 98.3 F 83 18 107/66 98 12/06/18 04:00 12/06/18 04:00 12/06/18 04:00 12/06/18 04:00 12/06/18 04:00 - Physical Exam General: no distress ENT: normal mucosa Neck: no lymphadectomy, no masses Cardiovascular: regular rate and rhythm (Soft systolic murmur (possible flow murmur?)), other (No lower extremity edema. 2+ radial & pedal pulses palpated bilaterally.) Respiratory: clear to auscultation, normal expansion (No rales, rhonchi, or wheezes.) Abdomen: soft, positive bowel sounds (Bowel sounds were very soft. No abdominal bruits.), appropriately tender Genitourinary (Female): other (Currently wearing pad due to slight vaginal/ rectal bleeding in recovery.) Integumentary: no rash Psychiatric: oriented to time, oriented to person, oriented to place, speech is normal Wound: dressing clean,dry,intact, healing well (No signs of wound erythema or discharge.) Surgery Progress Note: Results - Labs Result Diagrams: 12/06/18 04:13 12/06/18 04:13 Lab results: Laboratory Results - last 24 hr 12/06/18 12/06/18 04:13 04:13 WBC 12.9 H RBC 3.86 L Hgb 9.9 L Hct 31.1 L MCV 80.7 MCH 25.6 L MCHC 31.8 L RDW 13.5 Plt Count 327 MPV 6.5 L Neutrophils % 75.5 H Lymphocytes % 14.2 L Monocytes % 10.2 H Eosinophils % 0.0 Basophils % 0.1 Neutrophils # 9.7 H Lymphocytes # 1.8 Monocytes # 1.3 H Eosinophils # 0.0 Basophils # 0.0 Sodium 136 Potassium 3.6 Chloride 107 Carbon Dioxide 22 Anion Gap 11 BUN 5 L Creatinine 0.83 Estimated GFR (MDRD) Greater than 90 Glucose 107 H Calcium 8.5 Surgery Progress Note: A/P - Plan Plan: Post-Surgery (Rectosigmoid Nodule Resection) -Patient recovering well with controlled pain and nausea. -Monitor patient bowel movements and passing of flatus. -Continue ambulation and spirometry as tolerated -May progress to full liquid diet -Singh to be removed this morning -Plan for discharge tomorrow Addendum - Physician - Physician Attestation Date/Time: 12/06/18 1208 Doing well. Laura clears. Advance to fulls. DC tomorrow if doing well. Dr Pate seeing for me tomorrow I personally performed or re-performed the physical examination and medical decision making. I have verified all student documentation or findings, including history, physical exam and/or medical decision making.
[2018-12-06] MEDS: Famotidine/PF 20 mg/2ml Vial SLOW IVP SCH ×2 (08:47→22:54)
[2018-12-06] MEDS: Famotidine 20 MG TAB PO SCH ×2 (10:16→21:05)
[2018-12-06] MEDS: HYDROcodone/Acetaminophen 7.5/325 mg Tablet PO PRN (17:15)
[2018-12-06] MEDS: Enoxaparin Sodium 40 MG/0.4 ML SYRINGE SC SCH (21:05)
[2018-12-07] MEDS: HYDROcodone/Acetaminophen 7.5/325 mg Tablet PO PRN ×4 (00:37→23:45)
[2018-12-07] MEDS: Famotidine 20 MG TAB PO SCH ×2 (07:45→21:25)
[2018-12-07] MEDS: Famotidine/PF 20 mg/2ml Vial SLOW IVP SCH ×2 (07:56→22:12)
[2018-12-07] MEDS: Enoxaparin Sodium 40 MG/0.4 ML SYRINGE SC SCH (21:25)
[2018-12-08] MEDS: HYDROcodone/Acetaminophen 7.5/325 mg Tablet PO PRN ×3 (05:27→18:01)
[2018-12-08] MEDS: Famotidine/PF 20 mg/2ml Vial SLOW IVP SCH ×2 (08:45→21:35)
[2018-12-08] MEDS: Famotidine 20 MG TAB PO SCH ×2 (10:41→20:14)
--- NOTE | 2018-12-08 10:42 | PRG ---
DATE OF SERVICE: 12/08/2018 SUBJECTIVE: The patient says those she has still not passed any gas. She feels urged to have a bowel movement, but she has been having some nausea. For the most part, she is able to tolerate some liquids. OBJECTIVE: VITAL SIGNS: On examination, her temperature 97.5, pulse 69, and blood pressure 99/66. GENERAL: She is awake and alert. Does not appear to be in any distress. She is urinating well. ASSESSMENT: Still swelling at the anastomosis. PLAN: Continue to ambulate. We will let her go home when she passed a little bit of flatus. Job ID: [id number]
[2018-12-08] MEDS: Enoxaparin Sodium 40 MG/0.4 ML SYRINGE SC SCH (20:14)
[2018-12-09] MEDS: HYDROcodone/Acetaminophen 7.5/325 mg Tablet PO PRN ×2 (00:02→05:46)
--- NOTE | 2018-12-09 07:39 | PDOC.GSPN ---
Surgery Progress Note: Subj - Subjective Patient reports: no new complaints, positive flatus, pain well controlled Narrative: Mrs. Hidalgo is a 23 year old female, post-op day 3 from colorectal nodule resection, who is recovering well. She has mild cramping today due to menstruation that started on Sunday, which she rates 11/27. Other than that, no new complaints or overnight events. She passed flatus yesterday, but has not had a bowel movement yet. She is tolerating full liquid diet and still ambulating/walking well. The patient mentions some stress with nursing staff. Patient denies burning or pain with urination, nausea, vomiting, and chest pain. Surgery Progress Note: Obj - Vital signs Vital signs: Vital Signs - Most Recent Temp Pulse Resp BP Pulse Ox 97.8 F 64 16 102/69 97 12/09/18 03:52 12/09/18 03:52 12/09/18 03:52 12/09/18 03:52 12/09/18 03:52 - Physical Exam General: no distress ENT: normal mucosa Neck: no lymphadectomy, no masses, no sean distention Cardiovascular: regular rate and rhythm (Soft sytolic flow murmur) Respiratory: clear to auscultation, normal expansion Abdomen: soft, nondistended, positive bowel sounds, appropriately tender ( Incisions sites itchy, but no signs of erythema or purulent discharge. Tender on right lateral incision.) Genitourinary (Female): other (Patient currently on period.) Psychiatric: oriented to time, oriented to person, oriented to place Wound: dressing clean,dry,intact, healing well Surgery Progress Note: Results - Labs Result Diagrams: 12/06/18 04:13 12/06/18 04:13 Surgery Progress Note: A/P - Plan Plan: Post Op Day 4 - colorectal nodule resection -Patient has passed flatus, still no bowel movement. -Continue ambulation as tolerated. -Continue full liquid diet, may progress to soft foods. -Appears ready for discharge later today. Addendum - Physician - Physician Attestation Date/Time: 12/09/18 0955 Has passed flatus, no nausea, wounds clear. Home on Full liquids for two days then caserole diet for a few days then as tolerated I personally performed or re-performed the physical examination and medical decision making. I have verified all student documentation or findings, including history, physical exam and/or medical decision making.
[2018-12-09 08:01] VITALS: BP 104/69; TEMP 98.1
[2018-12-09] MEDS: Famotidine/PF 20 mg/2ml Vial SLOW IVP SCH (09:00)
[2018-12-09] MEDS: Famotidine 20 MG TAB PO SCH (09:00)
--- NOTE | 2018-12-09 09:13 | PRG ---
DATE OF SERVICE: 12/07/2018 SUBJECTIVE: The patient is status post low anterior resection for endometrioma. She says she at times feels better and then feels worse. She has not passed any gas. She is tolerating full liquids. She denies nausea. OBJECTIVE: VITAL SIGNS: On exam, temperature 98.8, pulse 91, blood pressure 104/62. GENERAL: She is awake and alert. LUNGS: Clear. ABDOMEN: Little distended. Incision appeared to be healing well. There is no evidence of infection. ASSESSMENT: Status post low anterior resection, doing well. PLAN: Continue ambulation. When she passes a little flatus, we can let her go home. Job ID: [id number]
[2018-12-09] MEDS ORDERED: Milk Of Magnesia 30 ML UDCUP PO SCH (10:00)
--- NOTE | 2018-12-09 10:22 | DIS ---
DATE OF ADMISSION: 12/05/2018 DATE OF DISCHARGE: 12/09/2018 ADMIT DIAGNOSES: Rectal mass and stenosis. DISCHARGE DIAGNOSES: Rectal mass and stenosis. PROCEDURE PERFORMED: Laparoscopic partial resection of rectum with anastomosis by Dr. Goodman without complication. CONDITION AT DISCHARGE: Stable. STAFF: Eloy Goodman MD. HOSPITAL COURSE: The patient's postop course was uneventful. She was on a liquid diet immediately after surgery. This was advanced to full liquid through the weekend. Her mild expected postoperative ileus resolved and on 12/09, she is passing gas. She has not had a bowel movement yet. She will receive a dose of milk of magnesium now and then she can do it daily until she has a bowel movement at home. She was warned that her first bowel movement may have some blood in it. Prescriptions for Vadim Chaves already sent to her pharmacy. Job ID: [id number]
== END 2018-12-09 12:01 | disposition home or self-care (01) | DRG 330 ==
LOC: SURG A 12-05 05:48 → SURG B 12-05 14:14
PROVIDERS: ADMIT Surgery; ATTEND Surgery
PROC: 0DTN4ZZ Resection of Sigmoid Colon, Percutaneous Endoscopic Approach (ICD-10-PCS; principal; 2018-12-05)
PROC: 0DBP4ZZ Excision of Rectum, Percutaneous Endoscopic Approach (ICD-10-PCS; 2018-12-05)
PROC: 8E0W4CZ Robotic Assisted Procedure of Trunk Region, Percutaneous Endoscopic Approach (ICD-10-PCS; 2018-12-05)
DX: N80.5 Endometriosis of intestine (principal); K56.7 Ileus, unspecified; K62.4 Stenosis of anus and rectum
CPT/HCPCS: 36415; 36416; 80048; 83036; 84703; 85025; 86850; 86900; 86901; 88307; J0131; J0670; J0690; J0694; J1100; J1650; J1956; J2001; J2250; J2405; J2704; J3010; J3490; S0028

== ENCOUNTER 2018-12-04 10:58 | Outpatient (CLI) | payer OTHER ==
[2018-12-04 12:05] LABS: #Basophils 0.1 thou/uL (0.0-0.2); #Eosinphils 0.3 thou/uL (0.0-0.7); #Lymphocytes 1.8 thou/uL (1.20-3.40); #Monocytes 0.5 thou/uL (0.11-0.59); #Neutrophils 3.1 thou/uL (1.40-6.50); %Basophils 1.1 % (0.0-1.0); %Eosinophils 5.1 % (0.0-10.0); %Lymphocytes 31.8 % (21.0-51.0); %Monocytes 8.1 % (0.0-10.0); %Neutrophils 53.9 % (42.0-75.0); Hemoglobin 11.8 g/dL (12.0-16.0); Mean Corpuscular HGB CONC 31.5 g/dL (32.0-36.0); Mean Corpuscular Hemoglobin 25.7 pg (27.0-31.0); Mean Corpuscular Volume 81.6 fL (78.0-98.0); Mean Platelet Volume 6.8 fL (7.4-10.4); Platelet Count 380 thou/uL (130-400); RBC Distribution Width 13.3 % (11.5-14.5); Red Blood Cell (RBC) Count 4.58 mill/uL (4.20-5.40); White Blood Cell (WBC) Count 5.8 thou/uL (4.8-10.8)
[2018-12-04 12:49] LABS: Anion Gap 12 mmol/L (10-20); BUN (Urea Nitrogen) 7 mg/dL (7.0-18.7); Calc. Creatinine Clearance 0 mL/min (70-130); Calcium 9.7 mg/dL (7.8-10.44); Carbon Dioxide 23 mmol/L (22-29); Chloride 106 mmol/L (98-107); Estimated GFR-MDRD Greater than 90; Glucose 81 mg/dL (70-105); Potassium 4.1 mmol/L (3.5-5.1); Sodium 137 mmol/L (136-145)
== END 2018-12-04 10:59 | disposition home or self-care (01) ==
LOC: LABBT 10:58
PROVIDERS: ATTEND Surgery
DX: Z01.812 Encounter for preprocedural laboratory examination (principal); N80.8 Other endometriosis
CPT/HCPCS: 80048; 83036; 85025

== ENCOUNTER 2019-02-03 10:17 | Emergency (ER) | payer OTHER, SELFPAY ==
[2019-02-03 10:45] LABS: Bilirubin Negative (Negative); Blood, Urine Negative (Negative); Clarity Clear (Clear); Glucose, Urine (Dipstick) Normal (Negative); Leukocyte Negative Leu/uL (Negative); Nitrite Negative (Negative); Protein, Urine (Dipstick) Negative (Neg-Trace); Urobilinogen Normal mg/dL (Less than 2)
[2019-02-03 11:02] LABS: #Basophils 0.1 thou/uL (0.0-0.2); #Eosinphils 0.4 thou/uL (0.0-0.7); #Lymphocytes 1.6 thou/uL (1.20-3.40); #Monocytes 0.5 thou/uL (0.11-0.59); #Neutrophils 2.7 thou/uL (1.40-6.50); %Basophils 1.4 % (0.0-1.0); %Eosinophils 8.5 % (0.0-10.0); %Lymphocytes 29.3 % (21.0-51.0); %Monocytes 8.8 % (0.0-10.0); Hemoglobin 12.6 g/dL (12.0-16.0); Mean Corpuscular HGB CONC 33.2 g/dL (32.0-36.0); Mean Corpuscular Hemoglobin 26.7 pg (27.0-31.0); Mean Corpuscular Volume 80.4 fL (78.0-98.0); Mean Platelet Volume 7.2 fL (7.4-10.4); Platelet Count 315 thou/uL (130-400); RBC Distribution Width 14.3 % (11.5-14.5); Red Blood Cell (RBC) Count 4.72 mill/uL (4.20-5.40); White Blood Cell (WBC) Count 5.3 thou/uL (4.8-10.8)
[2019-02-03 11:27] LABS: ALT (SGPT) 17 U/L (8-55); AST (SGOT) 17 U/L (5-34); Albumin 4.2 g/dL (3.5-5.0); Alkaline Phosphatase 54 U/L (40-150); Anion Gap 10 mmol/L (10-20); BUN (Urea Nitrogen) 7 mg/dL (7.0-18.7); Bilirubin, Total 0.4 mg/dL (0.2-1.2); Calc. Creatinine Clearance 0 mL/min (70-130); Calcium 9.9 mg/dL (7.8-10.44); Carbon Dioxide 27 mmol/L (22-29); Chloride 102 mmol/L (98-107); Estimated GFR-MDRD Greater than 90; Globulin 2.7 g/dL (2.4-3.5); Glucose 85 mg/dL (70-105); Potassium 3.7 mmol/L (3.5-5.1); Protein, Total 6.9 g/dL (6.0-8.3); Sodium 135 mmol/L (136-145)
--- NOTE | 2019-02-03 13:56 | ULT ---
Pelvic sonogram transabdominal and transvaginal imaging with duplex evaluation HISTORY: Pelvic pain. Positive test. FINDINGS: Urinary bladder is decompressed. Uterus has a heterogeneous echotexture and measures up to 5.6 cm. Endometrium is 0.7 cm. No gestational sac or free fluid in the endometrial cavity. Minimal free fluid in the cul-de-sac. Right ovary is 4.3 cm with small follicles and good color and spectral Doppler flow. Left ovary is 3. 5 cm with good color and spectral Doppler flow. IMPRESSION: Normal sonographic appearance of the pelvis. No evidence of intrauterine gestation.
== END 2019-02-03 14:34 | disposition home or self-care (01) ==
LOC: ERS 10:17
DX: R10.30 Lower abdominal pain, unspecified (principal); D64.9 Anemia, unspecified; F41.9 Anxiety disorder, unspecified; F32.9 Major depressive disorder, single episode, unspecified
CPT/HCPCS: 36415; 76856; 80053; 81003; 84702; 85025

== ENCOUNTER 2019-11-13 06:51 | Inpatient (IN) | payer SELFPAY ==
[2019-11-13] MEDS ORDERED: Ondansetron PF 4 MG/2 ML Vial ONE ×2 (07:36→10:49)
[2019-11-13] MEDS ORDERED: Morphine 4 MG/ML VIAL ONE (07:36)
[2019-11-13 07:41] LABS: #Eosinphils 0.5 thou/uL (0.0-0.7); #Lymphocytes 1.9 thou/uL (1.20-3.40); #Monocytes 0.6 thou/uL (0.11-0.59); #Neutrophils 4.1 thou/uL (1.40-6.50); %Basophils 0.5 % (0.0-1.0); %Eosinophils 7.2 % (0.0-10.0); %Lymphocytes 25.9 % (21.0-51.0); %Monocytes 8.7 % (0.0-10.0); %Neutrophils 57.6 % (42.0-75.0); Hemoglobin 12.2 g/dL (12.0-16.0); Mean Corpuscular HGB CONC 33.3 g/dL (32.0-36.0); Mean Corpuscular Hemoglobin 26.3 pg (27.0-31.0); Mean Platelet Volume 6.7 fL (7.4-10.4); Platelet Count 392 thou/uL (130-400); RBC Distribution Width 11.3 % (11.5-14.5); Red Blood Cell (RBC) Count 4.64 mill/uL (4.20-5.40); White Blood Cell (WBC) Count 7.1 thou/uL (4.8-10.8)
[2019-11-13 08:02] LABS: Anion Gap 12 mmol/L (10-20); BUN (Urea Nitrogen) 13 mg/dL (7.0-18.7); Bilirubin, Total 0.2 mg/dL (0.2-1.2); Calc. Creatinine Clearance 0 mL/min (70-130); Calcium 8.8 mg/dL (7.8-10.44); Carbon Dioxide 25 mmol/L (22-29); Chloride 105 mmol/L (98-107); Estimated GFR-MDRD Greater than 90; Glucose 95 mg/dL (70-105); Potassium 4.2 mmol/L (3.5-5.1); Sodium 138 mmol/L (136-145)
[2019-11-13 08:03] LABS: ALT (SGPT) 9 U/L (8-55); AST (SGOT) 13 U/L (5-34); Albumin 3.8 g/dL (3.5-5.0); Alkaline Phosphatase 97 U/L (40-110); Globulin 3.2 g/dL (2.4-3.5)
[2019-11-13 08:27] LABS: Bacteria/HPF 1+ HPF (None Seen); Bilirubin Negative (Negative); Blood, Urine 1+ (Negative); Clarity Clear (Clear); Glucose, Urine (Dipstick) Normal (Negative); Leukocyte Negative Leu/uL (Negative); Nitrite Negative (Negative); Protein, Urine (Dipstick) Negative (Neg-Trace); RBC/HPF 0-3 HPF (0-3); Squamous Epithelial 0-3 HPF (0-3); Urobilinogen Normal mg/dL (Less than 2); WBC/HPF 0-3 HPF (0-3)
[2019-11-13 08:28] LABS: Pregnancy Test - Urine (BHCG) Negative (Negative); Pregu Control Background? CLEAR/WHITE (CLR/WHITE); Pregu Control Bar Appear? YES (CONTROL BAR); Specific Gravity 1.017 (1.002-1.036)
--- NOTE | 2019-11-13 09:02 | CT ---
EXAM: CT ABDOMEN AND PELVIS HISTORY: Abdominal pain. Right lower quadrant pain COMPARISON: None. Procedure: Multiple contiguous axial images were obtained and a CT of the abdomen and pelvis with IV contrast. C oronal reformats were performed. FINDINGS: Lower Chest: within normal limits. Vessels: Normal caliber aorta Heart: Normal heart size Abdomen: Portal vein:Patent Gallbladder: No calcified gallstones. Normal caliber wall. Liver: within normal limits. Pancreas: within normal limits. Spleen: within normal limits. Adrenals: within normal limits. Kidneys: Symmetric enhancement. No obstructive uropathy. Peritoneum: No ascites or free air, no fluid collection. Bowel: Limited evaluation due to the lack of oral contrast administration. No evidence of bowel obstr uction. Ileocecal junction is unremarkable. Dilated retrocecal appendix with mild periappendiceal inflammatory change. Appendix measures 1.2 cm. No abscess or perforation. Scattered fecal material in a nondistended, nondilated colon. Mesentery and Retroperitoneum: No enlarged mesenteric or retroperitoneal lymph nodes. Abdominal Wall: within normal limits. Pelvis: Reproductive Organs: Reproductive organs are unremarkable. Pelvis: No mass, lymphadenopathy, free air or free fluid. Bladder: within normal limits. Bones: within normal limits. IMPRESSION: Appendicitis. Results study discussed with Dr. Olson 11/13/2019 8:59 AM Code CR
[2019-11-13] MEDS ORDERED: cefOXitin 2 GM in Sodium Chloride 0.9% 100 ML IVPB SCH (09:45)
--- NOTE | 2019-11-13 09:57 | HP ---
HISTORY OF PRESENT ILLNESS: Ms. Hidalgo is a 24-year-old obese woman, who presented to emergency department today. The patient reports insidious-onset right lower quadrant abdominal pain, which started yesterday morning and has persisted. Pain was rated at 7/10 at onset and has intensified to 8/10. As a result, she presented to emergency department. She denies any nausea, vomiting, or diarrhea. She denies any fevers or chills. PAST MEDICAL HISTORY: Pertinent for chronic endometriosis and chronic anemia. PAST SURGICAL HISTORY: Pertinent for diagnostic laparoscopy in February 2018, low-anterior resection of the rectosigmoid junction with primary colorectal anastomosis on 12/05/2018 for endometrial, rectal implants. SOCIAL HISTORY: The patient is currently unemployed. She admits to occasional intake of ethanol in moderate amounts. She denies any cigarette smoking or illicit drug abuse. FAMILY HISTORY: Notable for essential hypertension and diabetes mellitus, both sides of family. Maternal aunt with some cancer, specifics unknown. Paternal grandfather with heart disease. There is no other family history of any gastrointestinal disorders. PREHOSPITALIZATION MEDICATIONS: Include iron supplements. ALLERGIES: TO PENICILLIN AND CLINDAMYCIN. REVIEW OF SYSTEMS: 10-point review of systems is essentially unremarkable except as stated in past medical history and chief complaint. PHYSICAL EXAMINATION: GENERAL: This reveals a 24-year-old obese woman, who is otherwise coherent and interactive and appears stated age. The patient is alert and oriented x3, appears to be in no acute distress at time of my evaluation. VITAL SIGNS: Include blood pressure 120/77, pulse is 82, respiratory rate is 13, temperature 97.8 degrees Fahrenheit, oxygen saturation 99% on room air. HEENT: Pupils equal, round, reactive to light and accommodation. HEART: Reveals regular rate and rhythm. No murmurs or gallops auscultated. LUNGS: Clear to auscultation bilaterally. Her breathing is regular and nonlabored. ABDOMEN: Soft with right lower quadrant tenderness at McBurney's. She has a positive Rovsing sign. Liver and spleen otherwise nonpalpable below costal margin. NEUROLOGIC: Reveals no focal deficits present. LABORATORY FINDINGS: Today include a CBC with 7100 white blood cells, hemoglobin and hematocrit 12.2 and 36.7 respectively. Platelet count is 392,000. Metabolic profile; sodium 138, potassium 4.2, chloride is 105, bicarb is 25, BUN 13, creatinine 0.85, glucose 95, total bilirubin 0.2, AST and ALT 13 and 9 respectively. I have personally reviewed the CT scan of the abdomen and pelvis, which is remarkable for dilated retrocecal appendix with periappendiceal fat stranding. No pneumoperitoneum or significant free fluid is noted. IMPRESSION: Acute retrocecal appendicitis with localized peritonitis. RECOMMENDATIONS: Laparoscopic appendectomy. Above findings and recommendations have been discussed with the patient. I have advised the patient of the risks and benefits of the proposed surgery to include, but not limited to bleeding, infection, injury to bowel or surrounding structures. She indicates understanding of information given. I have answered all her questions. The patient has granted consent for this admission and surgical intervention. Job ID: [id number]
[2019-11-13] MEDS ORDERED: Meropenem 2 GM in Admixture Fee 1 EACH IVPB SCH (10:30)
[2019-11-13] MEDS ORDERED: Meropenem 2 GM in Sodium Chloride 0.9% 100 ML IVPB SCH (10:30)
[2019-11-13] MEDS ORDERED: diphenhydrAMINE 50 MG/ML VIAL ONE (10:49)
[2019-11-13] MEDS ORDERED: Dexamethasone 20 MG/5 ML VIAL ONE (10:49)
[2019-11-13] MEDS ORDERED: PROPOFOL 200 MG/20 ML VIAL ONE (10:49)
[2019-11-13] MEDS ORDERED: Lidocaine 1% PF 5 ML VIAL ONE (10:49)
[2019-11-13] MEDS ORDERED: Rocuronium Bromide 10 MG/ML (10ML VIAL) ONE (10:49)
[2019-11-13] MEDS ORDERED: Glycopyrrolate 0.2 MG/ML 5 ML SYRINGE ONE (10:49)
[2019-11-13] MEDS ORDERED: Ketorolac Tromethamine 30 MG/ML VIAL ONE (10:49)
[2019-11-13] MEDS ORDERED: Succinylcholine Chloride 20 MG/ML 10 ml SYRINGE FS ONE (10:49)
[2019-11-13] MEDS ORDERED: Ondansetron ODT 4 MG TAB SL PRN (12:30)
[2019-11-13] MEDS ORDERED: Ondansetron PF 4 MG/2 ML Vial IVP PRN (12:30)
[2019-11-13] MEDS ORDERED: Sodium Chloride 0.9% 1,000 ML IV SCH (12:30)
[2019-11-13] MEDS ORDERED: Fentanyl 100 MCG/2 ML VIAL ONE (12:58)
[2019-11-13] MEDS ORDERED: Bupivacaine 0.25% HCL 30 ML VIAL ONE (13:26)
[2019-11-13] MEDS ORDERED: Lidocaine 1% w/Epinephrine 1:100K 20 ML VIAL ONE (13:26)
[2019-11-13] MEDS ORDERED: Iopamidol-370 76% 500 ML 1 ML ONE (14:22)
[2019-11-13] MEDS ORDERED: Fentanyl 250 MCG/5 ML VIAL ONE (15:31)
[2019-11-13] MEDS ORDERED: Midazolam HCl 2 mg/2 ml Vial ONE (15:31)
[2019-11-13] MEDS ORDERED: Morphine Sulfate 2 MG/ML SYRINGE SLOW IVP PRN (16:59)
[2019-11-13] MEDS ORDERED: Ondansetron HCl/PF 4 MG/2 ML Vial IVP PRN (16:59)
[2019-11-13] MEDS ORDERED: Promethazine HCl 25 MG/ML VIAL IM PRN (16:59)
[2019-11-13] MEDS ORDERED: Meperidine HCl/PF 25 MG/ML VIAL SLOW IVP PRN (16:59)
[2019-11-13] MEDS ORDERED: Acetaminophen 500 MG TAB PO PRN (18:09)
[2019-11-13] MEDS ORDERED: Ibuprofen 600 MG TAB PO PRN (18:10)
[2019-11-13] MEDS ORDERED: traMADol HCl 50 MG TAB PO PRN ×2 (18:11)
[2019-11-13 19:05] VITALS: BMI 36.8
[2019-11-13 20:09] VITALS: TEMP 98.7
--- NOTE | 2019-11-13 22:09 | OP ---
DATE OF PROCEDURE: 11/13/2019 PREOPERATIVE DIAGNOSIS: Acute appendicitis. POSTOPERATIVE DIAGNOSIS: Acute retrocecal appendicitis with localized peritonitis. OPERATION PERFORMED: Laparoscopic appendectomy. ANESTHESIA: General endotracheal. ESTIMATED BLOOD LOSS: 5 mL. FLUIDS GIVEN: 800 mL crystalloids. COUNT: Sponge and instrument counts were verified as correct x2. COMPLICATIONS: None apparent at the time of operation. INDICATIONS FOR OPERATION: A 24-year-old obese woman, presented with insidious onset right lower quadrant abdominal pain since yesterday. Clinical and radiographic examination were consistent with acute retrocecal appendicitis, for which the patient was brought to the operating room for appendectomy. Findings are consistent with dilated inflamed retrocecal appendix. No evidence of perforation. There was minimal amount of straw-colored pelvic fluid. DESCRIPTION OF PROCEDURE: Informed consent was obtained from the patient. She was brought to the operating room, placed in supine position. Following general anesthesia, Singh catheter was inserted and placed to bedside drain. The abdomen was sterilely prepped and draped in usual fashion. The skin below the umbilicus was infiltrated with 0.25% Marcaine with epinephrine. A small infraumbilical vertical incision was made through previous scar using 11 scalpel. Umbilical stalk was grasped with Kings and elevated. Veress needle was inserted through the incision and placed in the peritoneal cavity, through which the abdomen was insufflated with 2 L of CO2 gas. Intraabdominal pressure was noted at 3 mmHg. Following abdominal insufflation, Veress needle was removed, and a 5 mm trocar was introduced using a Visiport under laparoscopy. Laparoscopy confirmed proper placement of the port, no injuries to underlying structures. Additional laparoscopy revealed the right lower quadrant partially encased by omental adhesions. Under direct laparoscopy, two 5 mm suprapubic and left lower quadrant ports were placed after the overlying skin infiltrated with 0.25% Marcaine with epinephrine, and appropriate incision was made. The patient was placed in a Trendelenburg position, rotated to her left. I introduced a Prestige grasper through the left lower quadrant port site, using this to bluntly take down omental adhesions to expose the retrocecal appendix. Endo [place] forceps was introduced through the suprapubic port site grasping the appendix, which was elevated. Using LigaSure device, the mesoappendix was sterilely divided down to the base with good hemostasis. The appendix itself was divided at the appendicocecal junction between Endoloop. This was delivered off the abdominal cavity using EndoCatch. Operative site was inspected for good hemostasis. Finding, no other pathology. Laparoscopy was terminated. The abdomen was desufflated, and all sponges and instruments were removed and accounted for. Skin incisions were closed using 4-0 Monocryl suture in subcuticular fashion. Dermabond was applied over incisional closure. The patient tolerated the operation without any apparent complication and was returned to the recovery room in satisfactory condition. Job ID: [id number]
[2019-11-13 22:44] VITALS: BP 102/70
== END 2019-11-13 21:30 | disposition home or self-care (01) | DRG 343 ==
LOC: ERS 06:51 → SURG B 09:12 → ERS 12:18 → SURG B 18:37 → ERS 18:37
PROVIDERS: ADMIT Surgery; ATTEND Surgery
PROC: 0DTJ4ZZ Resection of Appendix, Percutaneous Endoscopic Approach (ICD-10-PCS; principal; 2019-11-13)
DX: K35.30 Acute appendicitis with localized peritonitis, without perforation or gangrene (principal); Z90.49 Acquired absence of other specified parts of digestive tract; Z88.0 Allergy status to penicillin; Z88.1 Allergy status to other antibiotic agents
CPT/HCPCS: 74177; 80053; 81003; 81015; 81025; 85025; 96365; 96375; J0690; J0694; J1100; J1200; J1885; J2001; J2185; J2250; J2270; J2405; J2704; J3010; J3490; Q9967; S0020

== ENCOUNTER 2020-02-09 13:01 | Emergency (ER) | payer SELFPAY ==
--- NOTE | 2020-02-09 14:20 | RAD ---
Exam: Chest one view HISTORY:Chest pain Comparison: None FINDINGS: Cardiac silhouette: Normal Aorta: Unremarkable Pulmonary vessels: Normal Costophrenic angles: Clear LUNGS: No masses or consolidation. Pneumothorax: None Osseous abnormalities: None IMPRESSION: No acute cardiopulmonary process.
== END 2020-02-09 15:13 | disposition home or self-care (01) ==
LOC: ERS 13:01
DX: R07.9 Chest pain, unspecified (principal); D64.9 Anemia, unspecified; G43.909 Migraine, unspecified, not intractable, without status migrainosus; F41.9 Anxiety disorder, unspecified; F32.9 Major depressive disorder, single episode, unspecified
CPT/HCPCS: 71045; 93005

== ENCOUNTER 2020-04-27 20:24 | Emergency (ER) | payer SELFPAY ==
[2020-04-27] MEDS ORDERED: Ketorolac Tromethamine 30 MG/ML VIAL ONE ×2 (21:18)
== END 2020-04-27 21:40 | disposition home or self-care (01) ==
LOC: ERS 20:24
DX: K02.9 Dental caries, unspecified (principal); D64.9 Anemia, unspecified; Z79.899 Other long term (current) drug therapy
CPT/HCPCS: 96372; 99282; J1885

== ENCOUNTER 2020-06-26 17:20 | Emergency (ER) | payer BC, SELFPAY ==
[2020-06-26 23:50] LABS: SARS-CoV-2 PCR by NAA Not Detected (NotDetected)
== END 2020-06-26 18:00 | disposition home or self-care (01) ==
LOC: ERS 17:20
DX: R51.9 Headache, unspecified (principal); Z20.822 Contact with and (suspected) exposure to COVID-19; D64.9 Anemia, unspecified
CPT/HCPCS: 87635; 99284; U0003; U0005

== ENCOUNTER 2020-09-10 21:13 | Emergency (ER) | payer BC, SELFPAY ==
[2020-09-10 22:25] LABS: #Basophils 0.1 thou/uL (0.0-0.2); #Eosinphils 0.2 thou/uL (0.0-0.7); #Lymphocytes 2.9 thou/uL (1.20-3.40); #Monocytes 0.9 thou/uL (0.11-0.59); #Neutrophils 5.5 thou/uL (1.40-6.50); %Basophils 0.6 % (0.0-1.0); %Eosinophils 2.4 % (0.0-10.0); %Lymphocytes 30.5 % (21.0-51.0); %Monocytes 8.9 % (0.0-10.0); %Neutrophils 57.7 % (42.0-75.0); Mean Corpuscular HGB CONC 33.2 g/dL (32.0-36.0); Mean Corpuscular Hemoglobin 26.7 pg (27.0-31.0); Mean Corpuscular Volume 80.4 fL (78.0-98.0); Mean Platelet Volume 6.4 fL (7.4-10.4); Platelet Count 330 thou/uL (130-400); RBC Distribution Width 12.3 % (11.5-14.5); Red Blood Cell (RBC) Count 4.12 mill/uL (4.20-5.40); White Blood Cell (WBC) Count 9.6 thou/uL (4.8-10.8)
[2020-09-10] MEDS ORDERED: Lidocaine Viscous Sol 2% 15 ml UD Cup ONE (22:26)
[2020-09-10] MEDS ORDERED: Mag-Al 1200 mg/1200 mg/30 ML UDCUP ONE (22:26)
[2020-09-10 22:32] LABS: BHCG - Serum Negative (NEGATIVE); Pregs Control Background? CLEAR/WHITE (CLR/WHITE); Pregs Control Bar Appear? YES (CONTROL BAR)
[2020-09-10 22:46] LABS: ALT (SGPT) 9 U/L (8-55); AST (SGOT) 13 U/L (5-34); Albumin 3.4 g/dL (3.5-5.0); Alkaline Phosphatase 71 U/L (40-110); Anion Gap 9 mmol/L (10-20); BUN (Urea Nitrogen) 9 mg/dL (7.0-18.7); Bilirubin, Total 0.2 mg/dL (0.2-1.2); Calc. Creatinine Clearance 0 mL/min (70-130); Calcium 8.8 mg/dL (7.8-10.44); Carbon Dioxide 28 mmol/L (22-29); Chloride 106 mmol/L (98-107); Globulin 2.6 g/dL (2.4-3.5); Glucose 96 mg/dL (70-105); Lipase 21 U/L (8-78); Potassium 3.6 mmol/L (3.5-5.1); Sodium 139 mmol/L (136-145)
[2020-09-10 23:12] LABS: Bilirubin Negative (Negative); Blood, Urine Negative (Negative); Clarity Turbid (Clear); Glucose, Urine (Dipstick) Normal (Negative); Ketone, Urine Negative (Negative); Leukocyte Negative Leu/uL (Negative); Nitrite Negative (Negative); Protein, Urine (Dipstick) Negative (Neg-Trace); Specific Gravity, Urine 1.015 (1.002-1.036); Urobilinogen Normal mg/dL (Less than 2)
== END 2020-09-10 23:23 | disposition home or self-care (01) ==
LOC: ERS 21:13
DX: R10.13 Epigastric pain (principal); R07.81 Pleurodynia
CPT/HCPCS: 36415; 71046; 80053; 81003; 83690; 84703; 85025

== ENCOUNTER 2021-01-10 07:34 | Emergency (ER) | payer SELFPAY ==
[2021-01-10 13:06] LABS: SARS-CoV-2 PCR by NAA DETECTED (NotDetected)
== END 2021-01-10 08:10 | disposition home or self-care (01) ==
LOC: ERS 07:34
DX: U07.1 COVID-19 (principal); D64.9 Anemia, unspecified
CPT/HCPCS: 99283; U0003; U0005